=== PATIENT | male | born 1990 | race Caucasian/White ===

== ENCOUNTER 2024-03-27 12:40 | Emergency (ER) | payer BC, MEDICAID ==
[~2024-03-27] VITALS: Ht 157.5 cm; Wt 99.0 kg
[~2024-03-27 12:40] MED LIST: ALBUTEROL
[2024-03-27 12:45] VITALS: O2SAT 98
[2024-03-27 13:11] LABS: BASOPHILS % 0.5 % (0.0-2.0); EOSINOPHILS % 1.5 % (0.0-5.0); HEMATOCRIT. 41.8 % (42.0-52.0); HEMOGLOBIN. 13.9 g/dL (14.0-18.0); LYMPHOCYTES % 32.1 % (20.0-50.0); MEAN CORPUSCULAR HGB CONC 33.2 g/dL (31.0-37.0); MEAN CORPUSCULAR VOLUME 90.3 fL (80.0-94.0); MEAN PLATELET VOLUME 8.4 fl (7.4-10.4); MONOCYTES % 6.2 % (2.0-8.0); NEUTROPHILS % 59.7 % (40.0-76.0); PLATELET 227 x1000/uL (130-400); RED BLOOD CELL COUNT 4.64 mill/uL (4.7-6.1); RED CELL DISTRIBUTION WIDTH 13.9 % (11.6-14.6); WHITE BLOOD COUNT 10.5 x1000/uL (4.5-11.0)
[2024-03-27 13:13] LABS: CHLORIDE 104 mEq/L (98-107); SODIUM 138 mEq/L (136-145)
[2024-03-27] MEDS: ASPIRIN 325MG EC TABLET PO ONE (13:13)
[2024-03-27 13:14] LABS: CARBON DIOXIDE 29 mEq/L (21-32)
[2024-03-27 13:19] LABS: CREATININE 1.1 mg/dL (0.6-1.3); GLUCOSE 116 mg/dL (70-105); UREA NITROGEN BLOOD 15 mg/dL (9-23)
[2024-03-27 13:21] LABS: D-DIMER < 0.19 mg/L FEU (<0.50); INR 0.9; PROTHROMBIN TIME 10.4 sec (9.6-11.0)
[2024-03-27 13:31] LABS: TROPONIN I HIGH SENSITIVITY < 4 ng/L (3.0-53)
[2024-03-27 17:24] LABS: TROPONIN I HIGH SENSITIVITY < 4 ng/L (3.0-53)
[2024-03-27] MEDS ORDERED: IBUP-2029 MT (17:32)
[2024-03-27 17:44] VITALS: BP 128/58; PULSE 72; RESP 17; TEMP 37.11408; O2SAT 100
== END 2024-03-27 17:45 | disposition home or self-care (01) ==
LOC: ER 12:40
DX: R07.89 Other chest pain (principal); J45.909 Unspecified asthma, uncomplicated
CPT/HCPCS: 36415; 71045; 80048; 83880; 84484; 85025; 85379; 93005; 99285